=== PATIENT | male | born 1950 | race Caucasian/White ===

== ENCOUNTER 2022-01-13 01:28 | Emergency (ER) | payer OTHER ==
[2022-01-13] MEDS ORDERED: Silver Nitrate Application 1 EACH ONE (01:40)
== END 2022-01-13 02:24 ==
LOC: NAV ERS 01:28 → EEVIPCON 01:28 → NAV ERS 02:24
DX: S60.414A Abrasion of right ring finger, initial encounter (principal); X58.XXXA Exposure to other specified factors, initial encounter
CPT/HCPCS: 99282